=== PATIENT | male | born 1960 | race American Indian/Alaskan Native ===

== ENCOUNTER 2020-09-04 11:28 | Emergency (ER) | payer MEDICAID ==
[2020-09-04 12:13] VITALS: BP 134/71
--- NOTE | 2020-09-04 13:42 | Emergency Department Report ---
ED General Adult HPI - General Chief complaint: Skin/Abscess/Foreign Body Stated complaint: PAIN UNDERARM RIGHT PUI?: No Time Seen by Provider: 09/04/20 12:50 Source: patient Mode of arrival: Ambulatory Limitations: No Limitations - History of Present Illness Initial comments: This is a 60-year-old male with no prior medical history who presents ED complaining of right armpit swelling and pain for the past 1 week. Patient states about a week ago he noticed a small bump in his right underarm. Patient states for the past week is gotten a bit bigger and painful to touch. Patient denies any redness to the area, pus discharge, fever, chills, nausea vomiting or any other symptoms. - Related Data Previous Rx's Medication Instructions Recorded Last Taken Type Apixaban [Eliquis] 5 mg PO BID #60 tablet 04/09/16 Unknown Rx Apixaban [Eliquis] 10 mg PO BID #14 tablet 04/09/16 Unknown Rx Acetaminophen/Codeine [Tylenol 1 tab PO Q6H #12 tab 09/04/20 Unknown Rx /Codeine # 3 tab] Clindamycin [Clindamycin CAP] 300 mg PO Q8H #21 cap 09/04/20 Unknown Rx Ibuprofen [Motrin] 800 mg PO Q8HR #40 tablet 09/04/20 Unknown Rx Allergies Allergy/AdvReac Type Severity Reaction Status Date / Time No Known Allergies Allergy Unverified 04/08/16 15:13 ED Review of Systems ROS: Stated complaint: PAIN UNDERARM RIGHT Other details as noted in HPI Comment: All other systems reviewed and negative ED Past Medical Hx - Past Medical History Previous Medical History?: No Hx Congestive Heart Failure: No Hx Diabetes: No Hx Asthma: No Hx COPD: No - Surgical History Past Surgical History?: Yes Additional Surgical History: jaw reconstruction surgery may 2015 (fib shaft resection and leg skin graft used for jaw reconstruction) - Social History Smoking Status: Current Every Day Smoker - Medications Home Medications: Home Medications Medication Instructions Recorded Confirmed Last Taken Type Apixaban [Eliquis] 5 mg PO BID #60 tablet 04/09/16 Unknown Rx Apixaban [Eliquis] 10 mg PO BID #14 tablet 04/09/16 Unknown Rx Acetaminophen/Codeine [Tylenol 1 tab PO Q6H #12 tab 09/04/20 Unknown Rx /Codeine # 3 tab] Clindamycin [Clindamycin CAP] 300 mg PO Q8H #21 cap 09/04/20 Unknown Rx Ibuprofen [Motrin] 800 mg PO Q8HR #40 tablet 09/04/20 Unknown Rx ED Physical Exam - General Limitations: No Limitations - Head Head exam: Present: atraumatic - Eye Eye exam: Present: normal appearance, PERRL - ENT ENT exam: Present: normal exam - Neck Neck exam: Present: normal inspection, full ROM - Extremities Exam Extremities exam: Present: normal inspection, full ROM, normal capillary refill, other (3 to 4 cm round, tender, nonerythematous, nonflocculent lymphadenopathy in the right armpit.) ED Course Vital Signs 09/04/20 12:12 Temperature 98.8 F Pulse Rate 63 Respiratory 18 Rate Blood Pressure 134/71 O2 Sat by Pulse 98 Oximetry ED Medical Decision Making - Medical Decision Making 60-year-old male presents r with lymphadenopathy at the right armpit. Discussed antibiotic therapy warm compression 3 times a day and pain medication. Discussed follow-up with primary care physician. Patient is in no acute or respiratory distress. Critical care attestation.: If time is entered above; I have spent that time in minutes in the direct care of this critically ill patient, excluding procedure time. ED Disposition Clinical Impression: Lymphadenitis, Lymphadenopathy, axillary Disposition: DC-01 TO HOME OR SELFCARE Is pt being admited?: No Does the pt Need Aspirin: No Condition: Stable Instructions: Lymphadenopathy Additional Instructions: Make sure to follow up with the primary care physician as discussed. Take all your medications as you've been prescribed. If you have any worsening symptoms or develop new symptoms please return to ED immediately. Prescriptions: Clindamycin [Clindamycin CAP] 300 mg PO Q8H #21 cap Ibuprofen [Motrin] 800 mg PO Q8HR #40 tablet Acetaminophen/Codeine [Tylenol /Codeine # 3 tab] 1 tab PO Q6H #12 tab Referrals: [facility] [Outside] - 3-5 Days [facility] [Outside] - 3-5 Days Forms: Accompanied Note, Work/School Release Form(ED) Time of Disposition: 13:42
[2020-09-04] MEDS ORDERED: HYDROcodone/ACETAMINOPHEN 5-325 MG TAB PO ONE (13:44)
== END 2020-09-04 14:34 | disposition home or self-care (01) ==
LOC: ED 11:28
DX: L04.2 Acute lymphadenitis of upper limb (principal); F17.200 Nicotine dependence, unspecified, uncomplicated; Z98.890 Other specified postprocedural states; Z79.1 Long term (current) use of non-steroidal anti-inflammatories (NSAID); Z79.2 Long term (current) use of antibiotics; Z79.899 Other long term (current) drug therapy
CPT/HCPCS: 99282

== ENCOUNTER 2020-10-25 10:24 | Emergency (ER) | payer MEDICAID ==
[2020-10-25] MEDS ORDERED: HYDROcodone/ACETAMINOPHEN 7.5-325MG TAB PO ONE (11:09)
--- NOTE | 2020-10-25 11:37 | Emergency Department Report ---
- General Chief complaint: Skin/Abscess/Foreign Body Stated complaint: KNOT UNDER RIGHT ARM Time Seen by Provider: 10/25/20 10:52 Source: patient Mode of arrival: Ambulatory Limitations: No Limitations - History of Present Illness Initial comments: Patient is a 60-year-old male presents emergency room with complaints of a lump present to the right axilla that began approximately 2 months ago. Patient was evaluated in the emergency department on 09/04/2020 and was given a prescription for clindamycin and Tylenol with codeine. He states that that did not improve his symptoms. He states he did not follow-up with anyone. He states it has been increasing in size and becoming more painful. He denies any drainage, fever, chills, nausea, vomiting, diarrhea. No past medical history. No allergies to medications. pt is a smoker. - Related Data Previous Rx's Medication Instructions Recorded Last Taken Type Apixaban [Eliquis] 5 mg PO BID #60 tablet 04/09/16 Unknown Rx Apixaban [Eliquis] 10 mg PO BID #14 tablet 04/09/16 Unknown Rx Acetaminophen/Codeine [Tylenol 1 tab PO Q6H #12 tab 09/04/20 Unknown Rx /Codeine # 3 tab] Clindamycin [Clindamycin CAP] 300 mg PO Q8H #21 cap 09/04/20 Unknown Rx Ibuprofen [Motrin] 800 mg PO Q8HR #40 tablet 09/04/20 Unknown Rx HYDROcodone/APAP 7.5-325 [[place] 1 each PO Q8HR PRN #12 tablet 10/25/20 Unknown Rx 7.5/325] Allergies Allergy/AdvReac Type Severity Reaction Status Date / Time No Known Allergies Allergy Verified 10/25/20 10:28 Abscess Boil HPI - HPI Chief Complaint: Skin/Abscess/Foreign Body Stated Complaint: KNOT UNDER RIGHT ARM Time Seen by Provider: 10/25/20 10:52 Home Medications: Previous Rx's Medication Instructions Recorded Last Taken Type Apixaban [Eliquis] 5 mg PO BID #60 tablet 04/09/16 Unknown Rx Apixaban [Eliquis] 10 mg PO BID #14 tablet 04/09/16 Unknown Rx Acetaminophen/Codeine [Tylenol 1 tab PO Q6H #12 tab 09/04/20 Unknown Rx /Codeine # 3 tab] Clindamycin [Clindamycin CAP] 300 mg PO Q8H #21 cap 09/04/20 Unknown Rx Ibuprofen [Motrin] 800 mg PO Q8HR #40 tablet 09/04/20 Unknown Rx HYDROcodone/APAP 7.5-325 [[place] 1 each PO Q8HR PRN #12 tablet 10/25/20 Unknown Rx 7.5/325] Allergies/Adverse Reactions: Allergies Allergy/AdvReac Type Severity Reaction Status Date / Time No Known Allergies Allergy Verified 10/25/20 10:28 ED Review of Systems ROS: Stated complaint: KNOT UNDER RIGHT ARM Other details as noted in HPI Comment: All other systems reviewed and negative ED Past Medical Hx - Past Medical History Hx Congestive Heart Failure: No Hx Diabetes: No Hx Asthma: No Hx COPD: No - Surgical History Additional Surgical History: jaw reconstruction surgery may 2015 (fib shaft resection and leg skin graft used for jaw reconstruction) - Social History Smoking Status: Current Every Day Smoker Substance Use Type: None - Medications Home Medications: Home Medications Medication Instructions Recorded Confirmed Last Taken Type Apixaban [Eliquis] 5 mg PO BID #60 tablet 04/09/16 Unknown Rx Apixaban [Eliquis] 10 mg PO BID #14 tablet 04/09/16 Unknown Rx Acetaminophen/Codeine [Tylenol 1 tab PO Q6H #12 tab 09/04/20 Unknown Rx /Codeine # 3 tab] Clindamycin [Clindamycin CAP] 300 mg PO Q8H #21 cap 09/04/20 Unknown Rx Ibuprofen [Motrin] 800 mg PO Q8HR #40 tablet 09/04/20 Unknown Rx HYDROcodone/APAP 7.5-325 [[place] 1 each PO Q8HR PRN #12 tablet 10/25/20 Unknown Rx 7.5/325] ED Physical Exam - General Limitations: No Limitations General appearance: alert, in no apparent distress - Head Head exam: Present: atraumatic, normocephalic - ENT ENT exam: Present: mucous membranes moist - Respiratory Respiratory exam: Absent: respiratory distress, accessory muscle use - Neurological Exam Neurological exam: Present: alert, oriented X3 - Psychiatric Psychiatric exam: Present: normal affect, normal mood - Skin Skin exam: Present: warm, dry, other (5 cm nodule present to the right axillary region that is tender to palpation, no erythema, no increased warmth, no fluctuance, no skin changes, no nodules present to the right chest ) ED Course Vital Signs 10/25/20 10/25/20 10/25/20 10:30 11:34 14:55 Temperature 98.2 F Pulse Rate 79 91 H 80 Respiratory 20 19 18 Rate Blood Pressure 136/73 Blood Pressure 132/81 120/78 [Left] O2 Sat by Pulse 98 99 98 Oximetry ED Medical Decision Making - Lab Data Result diagrams: 10/25/20 12:07 10/25/20 12:07 Lab Results 10/25/20 10/25/20 Range/Units 12:07 12:07 WBC 5.6 (4.5-11.0) K/mm3 RBC 4.52 (3.65-5.03) M/mm3 Hgb 11.0 L (11.8-15.2) gm/dl Hct 33.7 L (35.5-45.6) % MCV 75 L (84-94) fl MCH 24 L (28-32) pg MCHC 33 (32-34) % RDW 13.7 (13.2-15.2) % Plt Count 333 (140-440) K/mm3 Lymph % (Auto) 26.7 (13.4-35.0) % [place] % (Auto) 10.6 H (0.0-7.3) % Eos % (Auto) 0.8 (0.0-4.3) % Baso % (Auto) 0.9 (0.0-1.8) % Lymph # (Auto) 1.5 (1.2-5.4) K/mm3 [place] # (Auto) 0.6 (0.0-0.8) K/mm3 Eos # (Auto) 0.0 (0.0-0.4) K/mm3 Baso # (Auto) 0.1 (0.0-0.1) K/mm3 Seg Neutrophils % 61.0 (40.0-70.0) % Seg Neutrophils # 3.4 (1.8-7.7) K/mm3 Sodium 140 (137-145) mmol/L Potassium 3.8 (3.6-5.0) mmol/L Chloride 102.1 (98-107) mmol/L Carbon Dioxide 25 (22-30) mmol/L Anion Gap 17 mmol/L BUN 9 (9-20) mg/dL Creatinine 0.6 L (0.8-1.3) mg/dL Estimated GFR > 60 ml/min BUN/Creatinine Ratio 15 % Glucose 92 (75-100) mg/dL Calcium 9.1 (8.4-10.2) mg/dL Total Bilirubin 0.30 (0.1-1.2) mg/dL AST 13 (5-40) units/L ALT 7 (7-56) units/L Alkaline Phosphatase 81 (35-129) units/L Total Protein 7.3 (6.3-8.2) g/dL Albumin 3.2 L (3.9-5) g/dL Albumin/Globulin Ratio 0.8 % - Radiology Data Radiology results: report reviewed Ordering Physician: MANUELA RODRIGUEZ Date of Service: 10/25/20 Procedure(s): CT chest w con Accession Number(s): [id number] cc: MANUELA RODRIGUEZ CT CHEST WITH CONTRAST INDICATION / CLINICAL INFORMATION: right axillary mass, [id number], keeps getting bigger [id number] 100ml. TECHNIQUE: Axial CT images were obtained through the chest after IV contrast. All CT scans at this location are performed using CT dose reduction for ALARA by means of automated exposure control. COMPARISON: None available. FINDINGS: THORACIC AORTA: No significant abnormality. PULMONARY ARTERIES: No central or segmental pulmonary embolus. HEART: No significant abnormality. LYMPHADENOPATHY: Enlarged right axillary lymph nodes with dominant large soft tissue mass with central hypoattenuation in the right axilla, measuring 7.4 x 6.2 x 7.3 cm. noted. No pathologically enlarged lymph nodes in the left axilla, mediastinal, or hilar regions. LUNGS/PLEURA: Spiculated pulmonary nodule in the right upper lobe along the fissure measures 1.6 x 1.4 x 1.9 cm (AP by transverse by craniocaudal). There is an additional irregular slightly spi culated nodular density in the right middle lobe posteriorly along the fissure, measuring up to 1.1 cm. Severe emphysema. No acute airspace disease. No pleural effusion or pneumothorax. ADDITIONAL CHEST FINDINGS: None. UPPER ABDOMEN: Abnormal masslike thickening of the left adrenal gland measures up to 1.4 cm (series 2 image 1:30). Tiny hypodensity within the right hepatic lobe likely reflects a cyst. No other significant abnormality of the upper abdomen. SKELETAL SYSTEM: No significant abnormality. IMPRESSION: 1. 1.9 cm spiculated nodule in the right upper lobe is highly concerning for primary lung malignancy. 2. Large centrally necrotic right axillary lymph node corresponds with palpable abnormality, compatible with metastatic disease. 3. 1.1 cm perifissural nodule in the right middle lobe may reflect satellite nodule or intrapulmonary lymph node. 4. Abnormal masslike thickening in the left adrenal gland, concerning for metastatic disease. Signer Name: Sadi Ríos MD Signed: 10/25/2020 1:53 PM Workstation Name: [id number] Transcribed By: DARWIN Dictated By: SADI RÍOS MD Electronically Authenticated By: SADI RÍOS MD Signed Date/Time: 10/25/20 135 DD/ 1339 TD/TT: - Medical Decision Making Patient is a 60-year-old male presents emergency room with complaints of a lump present to the right axilla that began approximately 2 months ago. Patient was evaluated in the emergency department on 09/04/2020 and was given a prescription for clindamycin and Tylenol with codeine. He states that that did not improve his symptoms. He states he did not follow-up with anyone. He states it has be en increasing in size and becoming more painful. He denies any drainage, fever, chills, nausea, vomiting, diarrhea. No past medical history. No allergies to medications. pt is a smoker. vss. on exam: 5 cm nodule present to the right axillary region that is tender to palpation, no erythema, no increased warmth, no fluctuance, no skin changes, no nodules present to the right chest. Examination is concerning for a mass, no obvious signs of abscess or cellulitis. Discussed case with Dr. Marcos, ER attending who evaluated patient at bedside and advised to order CT scan with contrast. Labs with very mild anemia, otherwise stable. CT chest with contrast:1. 1.9 cm spiculated nodule in the ri ght upper lobe is highly concerning for primary lung malignancy. 2. Large centrally necrotic right axillary lymph node corresponds with palpable abnormality, compatible with metastatic disease. 3. 1.1 cm perifissural nodule in the right middle lobe may reflect satellite nodule or intrapulmonary lymph node. 4. Abnormal masslike thickening in the left adrenal gland, concerning for metastatic disease. Findings concerning for metastatic cancer. Discussed all findings with patient and answer questions and stressed the importance of follow-up, patient given his CT report. Patient given prescription for pain medication. Spoke with Dr. Marcos, ER attending who recommended outpatient primary care and oncology follow-up. Please take medication as prescribed as needed. Your CT findings are concerning you need to see your primary care doctor and oncologist. Return to emergency. Critical care attestation.: If time is entered above; I have spent that time in minutes in the direct care of this critically ill patient, excluding procedure time. ED Disposition Clinical Impression: Lung mass, LAD (lymphadenopathy), Adrenal mass Disposition: TO HOME OR SELFCARE Is pt being admited?: No Does the pt Need Aspirin: No Condition: Stable Instructions: Lymphadenopathy, Lung Cancer Additional Instructions: Please take medication as prescribed as needed. Your CT findings are concerning you need to see your primary care doctor and oncologist. Return to emergency. Prescriptions: HYDROcodone/APAP 7.5-325 [[place] 7.5/325] 1 each PO Q8HR PRN #12 tablet PRN Reason: Pain Referrals: RAMSEY JIMÉNEZ MD [Staff Physician] - 2-3 Days [facility] [Provider Group] - 2-3 Days KESHAV LEACH MD [Staff Physician] - 2-3 Days Time of Disposition: 14:18 Print Language: HONDURAN
[2020-10-25 12:33] LABS: Basophils # (Auto) 0.1 K/mm3 (0.0-0.1); Basophils % (Auto) 0.9 % (0.0-1.8); Eosinophils % (Auto) 0.8 % (0.0-4.3); Hematocrit 33.7 % (35.5-45.6); Lymphocytes # (Auto) 1.5 K/mm3 (1.2-5.4); Lymphocytes % (Auto) 26.7 % (13.4-35.0); Mean Corpuscular HGB Conc 33 % (32-34); Mean Corpuscular Volume 75 fl (84-94); Monocytes # (Auto) 0.6 K/mm3 (0.0-0.8); Monocytes % (Auto) 10.6 % (0.0-7.3); Platelet Count 333 K/mm3 (140-440); Red Blood Count 4.52 M/mm3 (3.65-5.03); Red Cell Distribution Width 13.7 % (13.2-15.2)
[2020-10-25 12:58] LABS: Alanine Aminotransferase 7 units/L (7-56); Albumin 3.2 g/dL (3.9-5); Blood Urea Nitrogen 9 mg/dL (9-20); Calcium 9.1 mg/dL (8.4-10.2); Hemolysis Index 2
[2020-10-25 13:00] LABS: BUN/Creatinine Ratio 15
--- NOTE | 2020-10-25 13:57 | Cat Scan Report ---
CT CHEST WITH CONTRAST INDICATION / CLINICAL INFORMATION: right axillary mass, [id number], keeps getting bigger [id number] 100ml. TECHNIQUE: Axial CT images were obtained through the chest after IV contrast. All CT scans at this location are performed using CT dose reduction for ALARA by means of automated exposure control. COMPARISON: None available. FINDINGS: THORACIC AORTA: No significant abnormality. PULMONARY ARTERIES: No central or segmental pulmonary embolus. HEART: No significant abnormality. LYMPHADENOPATHY: Enlarged right axillary lymph nodes with dominant large soft tissue mass with centra l hypoattenuation in the right axilla, measuring 7.4 x 6.2 x 7.3 cm. noted. No pathologically enlarge d lymph nodes in the left axilla, mediastinal, or hilar regions. LUNGS/PLEURA: Spiculated pulmonary nodule in the right upper lobe along the fissure measures 1.6 x 1. 4 x 1.9 cm (AP by transverse by craniocaudal). There is an additional irregular slightly spiculated n odular density in the right middle lobe posteriorly along the fissure, measuring up to 1.1 cm. Severe emphysema. No acute airspace disease. No pleural effusion or pneumothorax. ADDITIONAL CHEST FINDINGS: None. UPPER ABDOMEN: Abnormal masslike thickening of the left adrenal gland measures up to 1.4 cm (series 2 image 1:30). Tiny hypodensity within the right hepatic lobe likely reflects a cyst. No other signifi cant abnormality of the upper abdomen. SKELETAL SYSTEM: No significant abnormality. IMPRESSION: 1. 1.9 cm spiculated nodule in the right upper lobe is highly concerning for primary lung malignancy. 2. Large centrally necrotic right axillary lymph node corresponds with palpable abnormality, compatib le with metastatic disease. 3. 1.1 cm perifissural nodule in the right middle lobe may reflect satellite nodule or intrapulmonary lymph node. 4. Abnormal masslike thickening in the left adrenal gland, concerning for metastatic disease. Signer Name: Eugene Ríos MD Signed: 10/25/2020 1:53 PM Workstation Name: [id number]
[2020-10-25 14:56] VITALS: BP 120/78
== END 2020-10-25 14:56 | disposition home or self-care (01) ==
LOC: ED 10:24
DX: R59.1 Generalized enlarged lymph nodes (principal); R91.8 Other nonspecific abnormal finding of lung field; E27.9 Disorder of adrenal gland, unspecified; F17.200 Nicotine dependence, unspecified, uncomplicated; Z98.890 Other specified postprocedural states; Z79.899 Other long term (current) drug therapy
CPT/HCPCS: 36415; 71260; 80053; 85025; 99284; Q9967